=== PATIENT | female | born 2005 | race African-American/Black ===

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

== ENCOUNTER 2025-03-10 08:36 | Emergency (ER) | payer MEDICAID, OTHER ==
[~2025-03-10] VITALS: Ht 167.6 cm; Wt 82.0 kg
[~2025-03-10 08:36] MED LIST: CEPH500C2 MT; TOPUD PO
[2025-03-10 08:42] VITALS: O2SAT 100
[2025-03-10 08:43] VITALS: BP 141/87; PULSE 100; RESP 18; TEMP 36.6; O2SAT 99
== END 2025-03-10 09:26 | disposition home or self-care (01) ==
LOC: ER 08:36
DX: R10.9 Unspecified abdominal pain (principal); R00.0 Tachycardia, unspecified; J45.909 Unspecified asthma, uncomplicated; Z79.899 Other long term (current) drug therapy; Z98.890 Other specified postprocedural states
CPT/HCPCS: 99284